=== PATIENT | male | born 1960 | race African-American/Black ===

== ENCOUNTER 2017-10-17 09:15 | Day surgery (SDC) | payer OTHER ==
[2017-10-17] MEDS: IV RINGERS,LACTATED 1000ML 1,000 ML IV ×2 (10:15→14:00)
[2017-10-17] MEDS ORDERED: DEXAMETHASONE SOD PHOS 20 MG/5 ML VIAL. (10:23)
[2017-10-17] MEDS ORDERED: PROPOFOL 20 ML IV (10:23)
[2017-10-17] MEDS ORDERED: LIDOCAINE 2% PF Vial for OR 5 ML VIAL. (10:23)
[2017-10-17] MEDS ORDERED: ROCURONIUM 50 MG/5 ML VIAL. (10:23)
[2017-10-17] MEDS ORDERED: fentaNYL PF VIAL 100 MCG/2 ML VIAL ×2 (10:23→12:48)
[2017-10-17] MEDS ORDERED: ONDANSETRON PF 4 MG/2 ML VIAL. (10:23)
[2017-10-17 10:33] LABS: ADD MAN DIFF? NO
[2017-10-17 10:35] LABS: BASO # 0.1 x10^3/uL (0.0-0.2); BASO % 1 % (0-3); EOS # 0.1 x10^3/uL (0.0-0.7); EOS % 2 % (0-3); HEMATOCRIT 52.1 % (39.0-53.0); HEMOGLOBIN 17.8 g/dL (13.0-17.5); LYMPH # 2.3 x10^3/uL (1.0-4.8); LYMPH % 26 % (24-48); MEAN CORPUSCULAR HEMOGLOBIN 33 pg (25-35); MEAN CORPUSCULAR HGB CONC 34 g/dL (31-37); MEAN CORPUSCULAR VOLUME 97 fL (79-100); MONO # 0.7 x10^3/uL (0.0-1.1); MONO % 8 % (0-9); NEUT # 5.7 x10^3uL (1.8-7.7); NEUT % 64 % (31-73); PLATELET COUNT 199 x10^3/uL (140-400); RED BLOOD COUNT 5.35 x10^6/uL (4.30-5.70); RED CELL DISTRIBUTION WIDTH 14.6 % (11.5-14.5); WHITE BLOOD COUNT 8.9 x10^3/uL (4.0-11.0)
[2017-10-17 10:43] LABS: ANION GAP 8 (6-14); BLOOD UREA NITROGEN 15 mg/dL (8-26); BUN/CREATININE RATIO 10 (6-20); CARBON DIOXIDE 27 mmol/L (21-32); CHLORIDE 103 mmol/L (98-107); CREATININE 1.5 mg/dL (0.7-1.3); GLUCOSE 161 mg/dL (70-99); POTASSIUM 3.9 mmol/L (3.5-5.1); SODIUM 138 mmol/L (136-145)
[2017-10-17 10:48] LABS: PROTHROMBIN TIME PATIENT 12.4 SEC (11.7-14.0)
[2017-10-17 10:49] LABS: ALBUMIN 4.2 g/dL (3.4-5.0); ALK PHOS 148 U/L (46-116); ALT (SGPT) 49 U/L (16-63); AST (SGOT) 41 U/L (15-37); TOTAL PROTEIN 8.4 g/dL (6.4-8.2)
[2017-10-17] MEDS ORDERED: MIDAZOLAM HCL/PF 2 MG/2 ML VIAL. (10:51)
[2017-10-17] MEDS ORDERED: MORPHINE SULFATE 4 MG/ML DISP.SYRIN. IV (11:00)
[2017-10-17] MEDS ORDERED: LIDOCAINE 1% PF 2 ML VIAL. ID (11:00)
[2017-10-17] MEDS ORDERED: fentaNYL PF VIAL 100 MCG/2 ML VIAL IV (11:00)
[2017-10-17] MEDS ORDERED: ONDANSETRON PF 4 MG/2 ML VIAL. IV (11:00)
[2017-10-17] MEDS ORDERED: ceFAZolin SODIUM 3 GM in IV DEXTROSE 5% 100 ML IV (12:00)
[2017-10-17] MEDS: BUPIVACAINE-EPI 0.25%-1:200000 50 ML VIAL. (12:14)
[2017-10-17] MEDS ORDERED: diphenhydrAMINE 50 MG/ML VIAL (12:34)
[2017-10-17] MEDS ORDERED: PHENYLEPHRINE in 0.9% NACL PF 1 MG/10 ML SYRINGE. IV (12:49)
[2017-10-17] MEDS ORDERED: SEVOFLURANE > 120 MINUTES. IH (13:16)
[2017-10-17] MEDS ORDERED: NEOSTIGMINE 10 MG/10 ML VIAL. (13:49)
[2017-10-17] MEDS ORDERED: GLYCOPYRROLATE 1 MG/5 ML VIAL. ×2 (13:50→14:03)
[2017-10-17] MEDS: fentaNYL PF VIAL 100 MCG/2 ML VIAL IV ×2 (14:45→15:07)
[2017-10-17] MEDS: PROCHLORPERAZINE 10 MG/2 ML VIAL. IV (14:45)
[2017-10-17] MEDS: oxyCODONE/APAP 7.5/325 1 TAB TABLET PO (15:33)
== END 2017-10-17 16:19 | disposition home or self-care (01) ==
LOC: SURG 09:15
DX: K42.9 Umbilical hernia without obstruction or gangrene (principal); K43.9 Ventral hernia without obstruction or gangrene; I10 Essential (primary) hypertension; E11.9 Type 2 diabetes mellitus without complications; E78.00 Pure hypercholesterolemia, unspecified; Z88.0 Allergy status to penicillin; Z72.89 Other problems related to lifestyle; F17.210 Nicotine dependence, cigarettes, uncomplicated; M19.90 Unspecified osteoarthritis, unspecified site; Z88.5 Allergy status to narcotic agent; Z88.8 Allergy status to other drugs, medicaments and biological substances; F12.90 Cannabis use, unspecified, uncomplicated
CPT/HCPCS: 36415; 80053; 85025; 85610; A7015; J0690; J0780; J1100; J1200; J2250; J2370; J2405; J2704; J2710; J3010; J3490; J7120